=== PATIENT | female | born 1990 | race Caucasian/White ===

== ENCOUNTER → 2017-01-11 | Outpatient (CLI) | payer BC, OTHER ==
[2016-09-08 02:21] VITALS: BP 156/92
[~2017-01-11] MED LIST: CYCL10TA2 PO; ESTR1TAB PO; LORA10TA3 PO; LORA1TAB47 PO; METF-620 PO; METH-37 PO; NAPR375T3 PO; PANT40TA5 PO; TRAM-29 PO
--- NOTE | 2017-01-11 15:22 | KCIC ---
PROCEDURE Thyroid ultrasound HISTORY Throat swelling COMPARISON None FINDINGS Multiple sonographic images of the thyroid gland are submitted. Isthmus measured 0.2 centimeters in thickness. Right lobe measured 1.5 by 4.4 x 1.6 centimeters. Left lobe measured 1.4 by 4.5 x 1.7 centimeters. There is normal vascularity of the thyroid gland. Thyroid parenchyma is homogeneous. IMPRESSION No abnormality is demonstrated of the thyroid gland. Electronically signed by: Minh Tee MD (January 11, 2017 15:21:15)
== END | disposition home or self-care (01) ==
LOC: KCIC US 14:47
PROVIDERS: ATTEND Family Medicine
DX: R22.1 Localized swelling, mass and lump, neck (principal)
CPT/HCPCS: 76536

== ENCOUNTER 2017-04-05 20:41 | Emergency (ER) | payer BC, OTHER ==
[~2017-04-05] VITALS: Ht 162.6 cm; Wt 108.9 kg
[~2017-04-05 20:41] MED LIST changes: -TRAM-29 PO; +TRAM-48 PO
[2017-04-05 20:54] VITALS: BP 156/78
--- NOTE | 2017-04-05 22:39 | RAD ---
CT MAXILLOFACIAL WO CONTRAST dated 04/05/2017 9:28 PM Indication: Left-sided jaw pain, feels dislocated Comparison: No comparison is available. Technique: Noncontrast CT imaging was performed of the[maxillofacial region], multiplanar reconstruction images submitted. One or more of the following individualized dose reduction techniques were utilized for this examination: 1. Automated exposure control 2. Adjustment of the mA and/or kV according to patient size 3. Use of iterative reconstruction technique. Findings: No acute fracture or dislocation is identified. There are apparently some variable small erosions of the teeth which may be due to dental caries. IMPRESSION: 1. No acute fracture or dislocation is identified. Electronically signed by: Carmine Tee MD (04/05/2017 10:36 PM) [facility]
[2017-04-05] MEDS ORDERED: NAPR500T8 PO (23:02)
[2017-04-05] MEDS ORDERED: CYCL10TA2 PO (23:02)
[2017-04-05] MEDS ORDERED: AMOX875T PO (23:02)
--- NOTE | 2017-04-05 23:02 | PHYS DOC ---
Past Medical History Past Medical History: Asthma, GERD, Other Additional Past Medical Histor: PCOS, borderline Hypertension, allergies, CHRONIC BACK Past Surgical History: Tonsillectomy Alcohol Use: Occasionally Drug Use: None Adult General Chief Complaint Chief Complaint: DENTAL PROBLEM HPI HPI Patient is a 27 year old female with history of TMJ and dental caries who presents today stating she dislocated her left jaw worse on eating. Patient states she's had jaw pain for months. She states she has followed up with her dentist who told her she has TMJ. Patient states she believes she dislocated the jaw and it is not TMJ. Patient denies any trauma. Denies any fever or trismus. Review of Systems Review of Systems Constitutional: Denies fever or chills [] HENT: left jaw pain Musculoskeletal: Denies back pain or joint pain [] Integument: Denies rash or skin lesions [] Neurologic: Denies headache, focal weakness or sensory changes [] Endocrine: Denies polyuria or polydipsia [] Allergies Allergies Allergies Coded Allergies Type Severity Reaction Last Updated Verified No Known Drug Allergies 09/20/15 No Physical Exam Physical Exam Constitutional: Well developed, well nourished, no acute distress, non-toxic appearance. [] HENT: Normocephalic, atraumatic, bilateral external ears normal, oropharynx moist, no oral exudates, nose normal. [] No obvious joint deformity noted on exam bilaterally. Full range of motion to the jaw bilaterally. Crepitus noted to the right jaw consistent with TMJ. Skin: Warm, dry, no erythema, no rash. [] Back: No tenderness, no CVA tenderness. [] Extremities: No tenderness, no cyanosis, no clubbing, ROM intact, no edema. [] Neurologic: Alert and oriented X 3, normal motor function, normal sensory function, no focal deficits noted. [] Psychologic: Affect normal, judgement normal, mood normal. [] Current Patient Data Vital Signs Vital Signs Date Time Temp Pulse Resp B/P (MAP) Pulse Ox O2 Delivery O2 Flow Rate FiO2 04/05/17 20:54 98.0 87 18 97 Room Air 98.0 Lab Values Laboratory Tests Test 04/05/17 21:09 POC Urine HCG, Qualitative Hcg negative (Negative) EKG EKG [] Radiology/Procedures Radiology/Procedures [] Course & Med Decision Making Course & Med Decision Making Pertinent Labs and Imaging studies reviewed. (See chart for details) Patient is in the ED complaining of left jaw pain. She has history of TMJ. She currently believes she has dislocated her jaw on the left side with no known trauma. She has been told by her dentist her jaw pain is from TMJ. She is requesting further workup to make sure her jaw is not dislocated. We did a facial maxillary CT which was negative for any acute findings. Reassured patient she was TMJ and not jaw fracture. Given a copy of the CT. CT showed she has dental caries. She was discharged with amoxicillin F/u with her dentist. She is on Baclofen for TMJ. OTC pain relievers recommended. Dragon Disclaimer Dragon Disclaimer This electronic medical record was generated, in whole or in part, using a voice recognition dictation system. Departure Departure Impression: Primary Impression: TMJ (dislocation of temporomandibular joint) Additional Impression: Dental caries Disposition: HOME, SELF-CARE Condition: STABLE Referrals: Emy HART MD (PCP) Follow-up with your dentist as soon as possible Patient Instructions: Dental Caries, Temporomandibular Joint Pain-Brief Additional Instructions: You were seen for dental caries and TMJ. Your CT was negative for any jaw fracture. Follow-up with your dentist as soon as possible. Take the prescribed medicines as ordered. Scripts Naproxen (NAPROXEN) 500 Mg Tablet.dr 1 TAB PO BID, #60 TAB 2 Refills Prov: JEFFREY DOMINGO APRN 04/05/17 Cyclobenzaprine Hcl (CYCLOBENZAPRINE HCL) 10 Mg Tablet 1 TAB PO TID, #30 TAB Prov: JEFFREY DOMINGO APRN 04/05/17 Amoxicillin (AMOXICILLIN) 875 Mg Tablet 1 TAB PO BID, #20 TAB Prov: JEFFREY DOMINGO APRN 04/05/17 Problem Qualifiers Primary Impression: TMJ (dislocation of temporomandibular joint) Encounter type: initial encounter Qualified Codes: S03.00XA - Dislocation of jaw, unspecified side, initial encounter JEFFREY DOMINGO APRN Apr 05, 2017 23:02
== END 2017-04-05 23:05 | disposition home or self-care (01) ==
LOC: ER 20:41
DX: S03.02XA Dislocation of jaw, left side, initial encounter (principal); K02.9 Dental caries, unspecified; J45.909 Unspecified asthma, uncomplicated; K21.9 Gastro-esophageal reflux disease without esophagitis; E28.2 Polycystic ovarian syndrome; G89.29 Other chronic pain; X58.XXXA Exposure to other specified factors, initial encounter; Y93.89 Activity, other specified; Y99.8 Other external cause status; Y92.89 Other specified places as the place of occurrence of the external cause
CPT/HCPCS: 70486; 81025; 99284-25

== ENCOUNTER 2017-04-21 07:03 | Emergency (ER) | payer BC, OTHER ==
[~2017-04-21 07:03] MED LIST changes: +AMOX875T PO; +NAPR500T8 PO
--- NOTE | 2017-04-21 07:07 | PHYS DOC ---
Past Medical History Past Medical History: Asthma, GERD, Other Additional Past Medical Histor: PCOS, borderline Hypertension, allergies, CHRONIC BACK Past Surgical History: Tonsillectomy Alcohol Use: Occasionally Drug Use: None Adult General Chief Complaint Chief Complaint: HEADACHE HPI HPI Patient is a 27 year old female presenting to the emergency department for right-sided headache that woke her from her sleep at approximately 6:00 this morning. She says the pain is behind her right ear and it is a sharp pain and associated with some nausea but no vision changes neck pain fevers chills unilateral weakness numbness or tingling. Patient has had no recent chiropractor manipulation and she denies any history of aneurysms in herself or her family. No blood vessel disorder such as dissections in herself or her family either. Patient was seen approximately 2 weeks ago for her TMJ and prescribed amoxicillin and naproxen and she says that she is no longer taking the naproxen. She says that she has not been taking anything for pain or anti- inflammatory effect. She is nontoxic appearing in no obvious distress with normal vital signs. Review of Systems Review of Systems Constitutional: Denies fever or chills [] Eyes: Denies change in visual acuity, redness, or eye pain [] Respiratory: Denies cough or shortness of breath [] Cardiovascular: No additional information not addressed in HPI [] GI: Denies abdominal pain. + nausea. No vomiting, bloody stools or diarrhea [] : Denies dysuria or hematuria [] Musculoskeletal: Denies back pain or joint pain [] Integument: Denies rash or skin lesions [] Neurologic: + headache. No focal weakness or sensory changes [] Current Medications Current Medications Current Medications Medications (Trade) Dose Ordered Sig/[facility] Start Time Stop Time Status Last Admin Dose Admin Diazepam (Valium) 5 mg 1X ONCE 04/21/17 07:15 04/21/17 07:17 DC 04/21/17 07:29 5 MG Ketorolac Tromethamine (Toradol Im) 60 mg 1X ONCE 04/21/17 07:15 04/21/17 07:17 DC 04/21/17 07:23 60 MG Ondansetron HCl (Zofran Odt) 4 mg 1X ONCE 04/21/17 07:15 04/21/17 07:17 DC 04/21/17 07:23 4 MG Oxycodone/ Acetaminophen (Percocet 5/325) 2 tab 1X ONCE 04/21/17 07:15 04/21/17 07:17 DC 04/21/17 07:29 2 TAB Allergies Allergies Allergies Coded Allergies Type Severity Reaction Last Updated Verified No Known Drug Allergies 09/20/15 No Physical Exam Physical Exam Constitutional: Well developed, well nourished, no acute distress, non-toxic appearance. [] HENT: Normocephalic, atraumatic, bilateral external ears normal, oropharynx moist, no oral exudates, nose normal. Patient has specific tenderness of her right postauricular area over her mastoiditis. She states that this area exacerbates her pain to palpation. Eyes: PERRLA, EOMI, conjunctiva normal, no discharge. [] Neck: Normal range of motion, no tenderness, supple, no stridor. No neck stiffness or signs of rigidity. Cardiovascular:Heart rate regular rhythm, no murmur [] Lungs & Thorax: Bilateral breath sounds clear to auscultation [] Abdomen: Bowel sounds normal, soft, no tenderness, no masses, no pulsatile masses. [] Skin: Warm, dry, no erythema, no rash. [] Back: No tenderness, no CVA tenderness. [] Extremities: No tenderness, no cyanosis, no clubbing, ROM intact, no edema. [] Neurologic: Alert and oriented X 3, normal motor function, normal sensory function, no focal deficits noted. [] Current Patient Data Vital Signs Vital Signs Date Time Temp Pulse Resp B/P (MAP) Pulse Ox O2 Delivery O2 Flow Rate FiO2 04/21/17 07:29 18 04/21/17 07:10 97.7 77 155/88 (110) 97 Room Air 97.7 Lab Values Laboratory Tests Test 04/21/17 06:31 POC Urine HCG, Qualitative Hcg negative (Negative) EKG EKG [] Radiology/Procedures Radiology/Procedures CT of the head without contrast, 04/21/2017: History: Right-sided headache The ventricles are within normal limits in size. There is no shift of the midline structures. There is no evidence of acute intracranial hemorrhage or mass effect. IMPRESSION: No acute intracranial abnormality is detected. RS Compliance Statement: One or more of the following individualized dose reduction techniques were utilized for this examination: 1. Automated exposure control 2. Adjustment of the mA and/or kV according to patient size 3. Use of iterative reconstruction technique DICTATED and SIGNED BY: CRYSTAL STRICKLAND MD DATE: 04/21/17 0738 Course & Med Decision Making Course & Med Decision Making Certainly consideration such as subarachnoid hemorrhage cerebral venous thrombosis carotid dissection BE considerations however given lack of clinical evidence she more likely has focal headache over her mastoid area. I can reproduce her pain to palpation of her right mastoid. Will get CT head to evaluate for hemorrhage and also her right mastoid. We'll treat symptoms of pain as well. Patient was given Toradol and Percocet and Valium and pain resolved. Repeat exam including neurologic exam was normal. Given patient appears well with normal vital signs benign physical exam and workup she'll be discharged with instructions to take NSAIDs for her pain and continue her home baclofen and follow with a primary care provider later this week and come back to the ER sooner with any worsening pain fevers vomiting or neurologic changes or other general concerns. Patient is asking to be cleared from work and I told her I would give her a note saying that she was here to be cleared from work on a long -term basis she would need this to come from her primary care provider. Patient aware and agreeable with plan for discharge and verbalized understanding of the above instructions. Dragon Disclaimer Dragon Disclaimer This electronic medical record was generated, in whole or in part, using a voice recognition dictation system. Departure Departure Impression: Primary Impression: Headache Referrals: Emy HART MD (PCP) Patient Instructions: General Headache Without Cause Problem Qualifiers Primary Impression: Headache Headache type: unspecified Headache chronicity pattern: acute headache Intractability: not intractable Qualified Codes: R51 - Headache RAYSA MATIAS DO Apr 21, 2017 07:07
[2017-04-21 07:10] VITALS: BP 155/88
[2017-04-21] MEDS ORDERED: ONDANSETRON ODT 4 MG TAB.RAPDIS. PO ONE (07:15)
[2017-04-21] MEDS ORDERED: oxyCODONE/APAP 5/325 1 TAB TABLET PO ONE (07:15)
[2017-04-21] MEDS ORDERED: diazePAM 5 MG TABLET PO ONE (07:15)
[2017-04-21] MEDS ORDERED: KETOROLAC TROMETHAMINE 60 MG/2 ML INJ. IM ONE (07:15)
--- NOTE | 2017-04-21 07:41 | RAD ---
CT of the head without contrast, 04/21/2017: History: Right-sided headache The ventricles are within normal limits in size. There is no shift of the midline structures. There is no evidence of acute intracranial hemorrhage or mass effect. IMPRESSION: No acute intracranial abnormality is detected. PQRS Compliance Statement: One or more of the following individualized dose reduction techniques were utilized for this examination: 1. Automated exposure control 2. Adjustment of the mA and/or kV according to patient size 3. Use of iterative reconstruction technique
== END 2017-04-21 08:19 | disposition home or self-care (01) ==
LOC: ER 07:03
DX: H70.91 Unspecified mastoiditis, right ear (principal); J45.909 Unspecified asthma, uncomplicated; K21.9 Gastro-esophageal reflux disease without esophagitis; E28.2 Polycystic ovarian syndrome; G89.29 Other chronic pain
CPT/HCPCS: 70450; 81025; 96372; 99284; J1885; Q0162

== ENCOUNTER → 2017-06-29 | Outpatient (CLI) | payer BC, OTHER ==
[~2017-06-29] MED LIST changes: +NAPR-695 PO; -NAPR375T3 PO; +TRAM50TA PO
--- NOTE | 2017-06-29 10:26 | KCIC ---
EXAM: Lumbar spine MRI without contrast. HISTORY: Lumbar radiculopathy. TECHNIQUE: Multiplanar, multisequence magnetic resonance imaging of the lumbar spine was performed without contrast. COMPARISON: None. FINDINGS: There is no listhesis. The vertebral bodies are normal in height and the disc spaces are preserved. There is no suspicious osseous lesion. There is no suspicious marrow or soft tissue edema. There is diffusely decreased T1 marrow signal intensity. The conus terminates at T12-L1. There is no disc herniation or significant foraminal or central canal stenosis. IMPRESSION: 1. No acute finding or evidence of significant foraminal or central canal stenosis. 2. Diffusely decreased T1 marrow signal intensity. This is most commonly due to anemia in female patients of this age. Electronically signed by: Brianna Hall MD (06/29/2017 10:23 AM) [facility]
--- NOTE | 2017-06-29 10:51 | KCIC ---
EXAM: Cervical spine MRI without contrast. HISTORY: Radiculopathy. TECHNIQUE: Multiplanar, multisequence magnetic resonance imaging of the cervical spine was performed without contrast. COMPARISON: None. FINDINGS: There is no listhesis. The vertebral bodies are normal in height. No spinal cord lesion is seen. The posterior fossa and skull base are unremarkable. There is diffusely decreased T1 marrow signal intensity. There is no significant disc herniation or foraminal or central canal stenosis. IMPRESSION: 1. No significant foraminal or central canal stenosis. 2. Diffusely decreased T1 marrow signal. This is most commonly due to anemia and female patients of this age. Electronically signed by: Brianna Hall MD (06/29/2017 10:47 AM) [facility]
== END | disposition home or self-care (01) ==
LOC: KCIC MRI 09:28
PROVIDERS: ATTEND Family Medicine
DX: M54.16 Radiculopathy, lumbar region (principal); M54.12 Radiculopathy, cervical region
CPT/HCPCS: 72141; 72148

== ENCOUNTER 2017-11-23 07:43 | Emergency (ER) | payer BC, OTHER ==
[2017-11-23] MEDS: KETOROLAC 60 MG/2 ML INJ. IM (08:05)
== END 2017-11-23 08:21 | disposition home or self-care (01) ==
LOC: ER 07:43
DX: G89.29 Other chronic pain (principal); M54.9 Dorsalgia, unspecified; M54.2 Cervicalgia; J45.909 Unspecified asthma, uncomplicated; K21.9 Gastro-esophageal reflux disease without esophagitis; I10 Essential (primary) hypertension; E28.2 Polycystic ovarian syndrome
CPT/HCPCS: 96372; 99283; J1885

== ENCOUNTER 2017-12-13 14:56 | Emergency (ER) | payer BC | END 2017-12-13 15:24 | disposition home or self-care (01) | LOC: ER 15:24 | DX: R50.9 Fever, unspecified (principal); R05 Cough; J45.909 Unspecified asthma, uncomplicated; K21.9 Gastro-esophageal reflux disease without esophagitis; I10 Essential (primary) hypertension; G89.29 Other chronic pain; E28.2 Polycystic ovarian syndrome | CPT/HCPCS: 99283 ==

== ENCOUNTER 2017-12-19 13:04 | Emergency (ER) | payer BC ==
[2017-12-19] MEDS: predniSONE 10 MG TABLET PO (14:20)
[2017-12-19] MEDS: LIDOCAINE 2% VISCOUS 15 ML SOLUTION. SWSW (14:22)
[2017-12-19] MEDS: IPRATRPIUM/ALBUTEROL 0.5/2.5MG 3 ML NEBU. NEB (14:27)
[2017-12-20 08:37] LABS: NEGATIVE OBC STREP NEG; POSITIVE OBC STREP POS
== END 2017-12-19 15:48 | disposition home or self-care (01) ==
LOC: ER 13:04
DX: J20.8 Acute bronchitis due to other specified organisms (principal); I10 Essential (primary) hypertension; J45.909 Unspecified asthma, uncomplicated; K21.9 Gastro-esophageal reflux disease without esophagitis; G89.29 Other chronic pain
CPT/HCPCS: 71046; 87070; 87880; 94640; 99285-25; J7512; J7620

== ENCOUNTER 2017-12-24 18:57 | Emergency (ER) | payer BC | END 2017-12-24 19:24 | disposition home or self-care (01) | LOC: ER 19:24 | DX: J45.21 Mild intermittent asthma with (acute) exacerbation (principal); J01.40 Acute pansinusitis, unspecified; K21.9 Gastro-esophageal reflux disease without esophagitis; E28.2 Polycystic ovarian syndrome; Z90.89 Acquired absence of other organs | CPT/HCPCS: 99283 ==

== ENCOUNTER 2018-04-21 10:43 | Emergency (ER) | payer SELFPAY ==
[~2018-04-21] VITALS: Ht 165.1 cm; Wt 113.4 kg
[~2018-04-21 10:43] MED LIST changes: +AMOX1TAB61 PO; +BENZ100C PO; +CODE10LI PO; -METF-620 PO; +METF10003 PO; +PRED50TA PO; +VENTOLIN HFA18 GM INH
[2018-04-21 10:51] VITALS: BP 154/91
[2018-04-21] MEDS ORDERED: NAPR-695 PO (11:14)
[2018-04-21] MEDS ORDERED: GABA-585 PO (11:14)
[2018-04-21] MEDS ORDERED: METF10003 PO (11:14)
[2018-04-21] MEDS ORDERED: PANT20TA2 PO (11:14)
[2018-04-21] MEDS ORDERED: DULO60CA6 PO (11:14)
--- NOTE | 2018-04-21 11:15 | PHYS DOC ---
Past Medical History Past Medical History: Asthma, GERD, Hypertension, Other Additional Past Medical Histor: PCOS, allergies, CHRONIC BACK, sees pain mgmt. Past Surgical History: Tonsillectomy Alcohol Use: Occasionally Drug Use: None Adult General Chief Complaint Chief Complaint: Insomnia HPI HPI Patient is a 28 year old female who presents to the ER for medication refill. Patient is unable to name any of her medications including the exact dosage of her medications. Patient reports that she's been out of her medications for approximately 1-2 weeks due to loss of health insurance. Patient states she was last seen by her PCP approximately 2 months ago. Patient requesting Rx for Ambien that she has not been able to sleep. Patient reports that she is unable sleep due to chronic back pain. Patient states that she was previously on duloxetine but had to stop this secondary to running out of that approximately one week ago. Review of Systems Review of Systems Constitutional: Denies fever or chills [] Eyes: Denies change in visual acuity, redness, or eye pain [] HENT: Denies nasal congestion or sore throat [] Respiratory: Denies cough or shortness of breath [] Cardiovascular: Chest pain, no lower extremity edema, no orthopnea GI: Denies abdominal pain, nausea, vomiting, bloody stools or diarrhea [] : Denies dysuria or hematuria [] Musculoskeletal: Neck and back pain present Integument: Denies rash or skin lesions [] Neurologic: Denies headache, focal weakness or sensory changes [] Endocrine: Denies polyuria or polydipsia [] All other systems were reviewed and found to be within normal limits, except as documented in this note. Allergies Allergies Allergies Coded Allergies Type Severity Reaction Last Updated Verified No Known Drug Allergies 09/20/15 No Physical Exam Physical Exam Constitutional: Obese, no acute distress, non-toxic appearance. [] Intermittently tearful HENT: Normocephalic, atraumatic, Eyes: PERRLA, EOMI, Neck: Normal range of motion, no tenderness, supple, no stridor. [] No midline spinal tenderness Cardiovascular:Heart rate regular rhythm, no murmur [] Lungs & Thorax: Bilateral breath sounds clear to auscultation [] Abdomen: Bowel sounds normal, soft, no tenderness, no masses, no pulsatile masses. [] Skin: Warm, dry, no erythema, no rash. [] Back: No tenderness, no CVA tenderness. [] No midline spinal tenderness Extremities: ROM intact, no edema. [] Neurologic: Alert and oriented X 3,, no focal deficits noted. [] Psychologic: Affect normal, judgement normal, mood normal. [ Current Patient Data Vital Signs Vital Signs Date Time Temp Pulse Resp B/P (MAP) Pulse Ox O2 Delivery O2 Flow Rate FiO2 04/21/18 10:51 98.1 83 18 154/91 (112) 96 Room Air 98.1 EKG EKG [] Radiology/Procedures Radiology/Procedures [] Course & Med Decision Making Course & Med Decision Making Pertinent Labs and Imaging studies reviewed. (See chart for details) []Discussed with patient that the ER is unable to provide any controlled substances in this situation. Advised patient to find resources through free clinics to continue management of her chronic medical conditions. Patient was unable to name the thigh majority of her home medications including exact milligram and dosing schedule. Patient called the pharmacy was able to obtain some of this information. I refilled the medications with a 30 day supply as below. I advised patient that I would not be able to prescribe any controlled substances Including Ambien. Dragon Disclaimer Dragon Disclaimer This electronic medical record was generated, in whole or in part, using a voice recognition dictation system. Departure Departure Impression: Primary Impression: Insomnia Additional Impression: Medication refill Disposition: HOME, SELF-CARE Condition: STABLE Referrals: Emy HART MD (PCP) Patient Instructions: Insomnia Additional Instructions: Thank you for coming to [facility]. Please repeat the attached handouts. Please follow-up with your primary care physician. Return to the ER if your symptoms worsen or you have any other concerns. Please take the medications as prescribed. Please call and establish care at one of the listed resources TODAY. Scripts Pantoprazole Sodium (PROTONIX) 20 Mg Tablet. 1 TAB PO DAILY, #30 TAB Prov: RAJ MEDELLIN DO 04/21/18 Duloxetine Hcl (CYMBALTA) 60 Mg Capsule. 1 CAP PO DAILY, #30 CAP 0 Refills Prov: RAJ MEDELLIN DO 04/21/18 Metformin Hcl (METFORMIN HCL) 1,000 Mg Tablet 1000 MG PO BIDWMEALS for 30 Days, #60 TAB Prov: RAJ MEDELLIN DO 04/21/18 Gabapentin (GABAPENTIN) 100 Mg Capsule 100 MG PO TID for 30 Days, #90 CAP Prov: RAJ MEDELLIN DO 04/21/18 Naproxen (NAPROXEN) 375 Mg Tablet 1 TAB PO BID, #60 TAB Prov: RAJ MEDELLIN DO 04/21/18 Problem Qualifiers RAJ MEDELLIN DO Apr 21, 2018 11:15
== END 2018-04-21 11:21 | disposition home or self-care (01) ==
LOC: ER 10:43
DX: G47.00 Insomnia, unspecified (principal); G89.29 Other chronic pain; Z76.0 Encounter for issue of repeat prescription; M54.9 Dorsalgia, unspecified; M54.2 Cervicalgia; K21.9 Gastro-esophageal reflux disease without esophagitis; I10 Essential (primary) hypertension; J45.909 Unspecified asthma, uncomplicated; E66.9 Obesity, unspecified; Z68.41 Body mass index [BMI] 40.0-44.9, adult; Z90.89 Acquired absence of other organs
CPT/HCPCS: 99283

== ENCOUNTER 2018-10-11 23:28 | Emergency (ER) | payer OTHER ==
[~2018-10-11] VITALS: Ht 165.1 cm; Wt 111.6 kg
[~2018-10-11 23:28] MED LIST changes: +DULO60CA6 PO; +GABA-585 PO; -METF10003 PO; +METF10007 PO; +PANT20TA2 PO
[2018-10-12] MEDS ORDERED: DEXAMETHASONE 4 MG TABLET PO ONE
[2018-10-12] MEDS ORDERED: IPRATRPIUM/ALBUTEROL 0.5/2.5MG 3 ML NEBU. NEB ONE
[2018-10-12 00:06] VITALS: BP 141/67
[2018-10-12] MEDS ORDERED: BENZ100C PO (00:06)
--- NOTE | 2018-10-12 00:06 | PHYS DOC ---
Past Medical History Past Medical History: Asthma, Fibromyalgia, GERD, Hypertension, Other Additional Past Medical Histor: PCOS, LUPUS, FIBROMYALGIA Past Surgical History: Tonsillectomy Alcohol Use: None Drug Use: None Adult General Chief Complaint Chief Complaint: COUGH HPI HPI 28-year-old female presents at approximately with report of cough x 1 week. Reports estimated delivery date of 02/20/19. Reports associated sore throat and discomfort in her upper chest which is worse with cough. Denies leg swelling or calf tenderness. Denies history of DVT/PE. Denies known trauma. Denies rash. Denies . Review of Systems Review of Systems Constitutional: Denies fever or chills [] Eyes: Denies change in visual acuity, redness, or eye pain [] HENT: Reports nasal congestion or sore throat [] Respiratory:Reports cough and shortness of breath [] Cardiovascular: Reports chest discomfort; denies palpitations GI: Denies abdominal pain, nausea, vomiting, or diarrhea [] : Denies dysuria or hematuria [] Musculoskeletal: Denies back pain or joint pain [] Integument: Denies rash or skin lesions [] Neurologic: Denies headache, focal weakness or sensory changes [] Complete systems were reviewed and found to be within normal limits, except as documented in this note. Current Medications Current Medications Current Medications Medications (Trade) Dose Ordered Sig/[facility] Start Time Stop Time Status Last Admin Dose Admin Albuterol/ Ipratropium (Duoneb) 3 ml 1X ONCE 10/12/18 00:00 10/12/18 00:01 DC 10/11/18 23:55 3 ML Dexamethasone (Decadron) 10 mg 1X ONCE 10/12/18 00:00 10/12/18 00:01 DC 10/11/18 23:54 10 MG Allergies Allergies Allergies Coded Allergies Type Severity Reaction Last Updated Verified No Known Drug Allergies 09/20/15 No Physical Exam Physical Exam Constitutional: Well developed, well nourished, no acute distress, non-toxic appearance. [] HENT: Normocephalic, atraumatic, bilateral TMs normal, oropharynx moist, no oral exudates, nose with some congestion noted Eyes: Conjunctiva normal, no discharge. [] Neck: Normal range of motion, no tenderness, supple, no meningeal signs Cardiovascular: Heart rate regular rhythm, no murmur [] Lungs & Thorax: Bilateral breath sounds clear to auscultation [] Abdomen: Soft, no tenderness, no masses, no pulsatile masses. [] Skin: Warm, dry, no erythema, no rash. [] Back: No tenderness, no CVA tenderness. [] Extremities: No tenderness, ROM intact, no edema. [] Neurologic: Alert and oriented X 3, normal motor function, normal sensory function, no focal deficits noted. [] Psychologic: Affect normal, judgement normal, mood normal. [] Current Patient Data Vital Signs Vital Signs Date Time Temp Pulse Resp B/P (MAP) Pulse Ox O2 Delivery O2 Flow Rate FiO2 10/12/18 00:06 101 141/67 (91) 99 Room Air 10/11/18 23:29 99.3 22 99.3 EKG EKG [] Radiology/Procedures Radiology/Procedures [] Course & Med Decision Making Course & Med Decision Making Patient presents in with report of worsening cough with some associated wheezing. Reports associated sore throat and discomfort in her upper chest. Symptomatic treatment provided with oral steroid and respiratory neb. Patient reports interval improvement of symptoms. Patient stable for discharge with outpatient follow-up with PCP. Discussed findings and plan with patient, who acknowledges understanding and agreement. Dragon Disclaimer Dragon Disclaimer This electronic medical record was generated, in whole or in part, using a voice recognition dictation system. Departure Departure Impression: Primary Impression: Bronchitis Disposition: 01 HOME, SELF-CARE Condition: IMPROVED Referrals: Emy HART MD (PCP) Patient Instructions: Acute Bronchitis, [id number] Additional Instructions: You were given a 1 time dose of a long acting steroid in the Emergency Department (dexamethasone). No further steroid is required. Scripts Benzonatate (TESSALON PERLE) 100 Mg Capsule 1 CAP PO TID PRN for COUGH, #21 CAP Prov: JESENIA RUVALCABA DO 10/12/18 JESENIA RUVALCABA DO Oct 12, 2018 00:06
== END 2018-10-12 00:33 | disposition home or self-care (01) ==
LOC: ER 23:28
DX: J40 Bronchitis, not specified as acute or chronic (principal); I10 Essential (primary) hypertension; K21.9 Gastro-esophageal reflux disease without esophagitis
CPT/HCPCS: 94640; 99283; J7620; J8540